=== PATIENT | male | born 1995 | race Caucasian/White ===

== ENCOUNTER 2019-10-18 19:19 | Emergency (ER) | payer BC, SELFPAY ==
[2019-10-18 19:18] VITALS: BP 117/38; PULSE 68; RESP 18; TEMP 36.4; O2SAT 100
[2019-10-18 19:23] VITALS: O2SAT 100
[2019-10-18 19:25] VITALS: BP 117/38; PULSE 61; O2SAT 100
--- NOTE | 2019-10-18 19:28 | ED.GENADUL_ITS ---
Discharge Plan Disposition Patient Disposition: HOME Condition: Stable Discharge Details Chief Complaint: Orthopedic Clinical Impression: Hip pain, right Primary Care Provider: Deepak Kauffman ED Provider: Shwetha Olivera Home Meds and New Rx's Prescriptions: New cyclobenzaprine 10 mg tablet 10 mg PO TID PRN (Reason: muscle spasm) Qty: 10 RF: 0 No Action ibuprofen 200 MG tablet 400 mg PO PRN PRNRF: 0 Discharge Instructions Instructions: Hip Pain (ED) Additional Instructions: Follow up with primary care provider in 3-5 days. Return to ED sooner if any worsening or concerns. Please take Tylenol or Ibuprofen with food every 4-6 hours as needed for pain and swelling. Take medications as directed. Your x-rays were negative for any fracture or dislocation at this time. Stand Alone Forms: Physical Therapy Referral, Work Release Referrals: Deepak Kauffman DO [Primary Care Provider] - Medical Decision Making 24-year-old male presents via EMS for right hip pain which radiates into his lower back. Prior to arrival patient was walking and heard some popping and his right hip gave out. Patient then fell to the ground became nauseous and vomited x1. 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 Upon arrival he has full range of motion of all 4 extremities. He does have tenderness with right straight leg test. Dorsal and plantar flexion and extension is intact. Denies any urinary incontinence, no saddle anesthesia, no loss of bowel. He does not have any history of back surgeries. He was given 200 mcg of fentanyl intranasal and IV prior to arrival. 1935: XR of hip and pelvis with L spine ordered. UA ordered and Toradol and Zofran. 1937: Informed by patient critical care transport nurse that Patient may have had loss of consciousness on scene, after speaking with patient he states he did lose consciousness for a few seconds and upon waking called his family. He remembers incident and denies hitting his head. At this time I do not feel CT is necessary due to alert and oriented x 3 and no head injuries noted. 2035: X-rays at this time are negative for fracture or dislocation. He has minimal L4 level levoscoliosis on his lumbar spine x-ray. Flexeril order in place and will try road test. Patient is feeling better and is eating and drinking in the room. 2100: Patient tolerated road test with RN, he was ambulatory without assistance, plan is to discharge patient with Flexeril prescription with strict return instructions. Physical therapy referral was given also if patient cannot follow up with his chiropractor. HPI General Mode of arrival: ambulatory . Date/Time Provider Initiated Documentation: 10/18/19 19:25 . Limitations to Documentation: no limitations . Information obtained by: patient and RN notes reviewed . History of Present Illness Quality is described as aching, and is localized to the back. Patient reports no radiation. and it has been constant. Movement worsens symptoms . Patient notes no other symptoms.. Patient did receive the following treatments prior to arrival, none HPI Narrative: 24-year-old male presents via EMS after he was walking around his house, heard some popping to his right hip and felt his right hip give out. Patient then fell to the ground, patient then got nauseated and vomited x1. He is currently power water filtration technician and has been doing some chiropractic adjustments onto his hip. No previous back surgeries or hip surgeries. Pain radiates up into his lower back. He is able to move all 4 extremities upon arrival. Related Data Home Medications Medication Instructions Recorded Confirmed ibuprofen 400 mg PO PRN PRN 05/04/17 10/18/19 cyclobenzaprine 10 mg PO TID PRN #10 tab 10/18/19 Previous Rx's Medication Instructions Recorded cyclobenzaprine 10 mg PO TID PRN #10 tab 10/18/19 Allergies Allergy/AdvReac Type Severity Reaction Status Date / Time silver sulfadiazine Allergy Intermediate Itching Unverified 10/18/19 19:29 amoxicillin [Amoxicillin] Allergy Mild Hives Unverified 10/18/19 19:29 General Stated Complaint: Orthopedic ADRY: 3 Review of Systems All systems reviewed & are unremarkable except as noted in HPI and below Constitutional Constitutional: Reports as per HPI, Denies body ache(s), Denies fever(s), Denies frequent falls, Denies lethargy, Denies night sweats, Denies snoring, Denies weakness and Denies weight loss Eyes Eyes: Denies loss of peripheral vision, Denies loss of vision and Denies spots in vision ENT Ears, Nose, Mouth, and Throat: Denies dizziness and Denies disequilibrium Cardiovascular Cardiovascular: Denies syncope, Denies claudication, Denies leg edema, Denies lightheadedness, Denies dyspnea and Denies dyspnea on exertion Respiratory Respiratory: Denies cough, Denies excessive phlegm production, Denies dyspnea, Denies dyspnea on exertion, Denies snoring and Denies stridor Gastrointestinal Gastrointestinal: Denies diarrhea Genitourinary Genitourinary: Denies difficulty urinating, Denies dysuria, Denies urinary incontinence and Denies urinary urgency Musculoskeletal Musculoskeletal: Denies abnormal gait, Reports back pain, Denies atrophy, Denies muscle weakness and Denies numbness Neurologic Neurologic: Denies abnormal movements, Denies abnormal gait, Denies burning sensations, Denies confusion, Denies dizziness, Denies syncope, Denies frequent falls, Denies lack of coordination, Denies loss of vision, Denies numbness, Denies paresthesias, Denies disequilibrium and Denies weakness Psychiatric Psychiatric: Denies confusion [facility] Medical History Cellulitis of hand, left (Acute) Mood disorder (Acute) Pilonidal cyst (Acute 12/16/15) PTSD (post-traumatic stress disorder) (Acute) Surgical History History of excision of mass (Inactive) Social History Smoking/Tobacco Use Status: Former Tobacco Use Quit Date: 08/19/16 Tobacco: How many years used: 8 Alcohol Intake: current Alcohol Intake frequency: a few times a month Alcohol type: beer Drug use: Daily Substance use type: marijuana Details: No IV Drug Use Adopted: No Caregiver/Support person: No Foster care: No Household members: family Housing: house Do you need help understanding health information?: Never current occupation: [employer] Sexually active: Yes Do you think of yourself as: straight/heterosexual Current gender identity: male Do you feel safe at home: Yes Do you feel safe in your relationship?: Yes Exam Const General: cooperative, healthy appearing, uncomfortable and well groomed Nutritional Appearance: average body habitus Orientation: alert, awake and oriented x3 Resp Effort & Inspection: normal respiratory effort and no use of accessory muscles Auscultation: clear to auscultation bilaterally and no wheezes Cardio Rhythm: regular rhythm Heart Sounds: S1 normal and S2 normal Back/Spine/Pelvis Back: no CVA tenderness and back tenderness Cervical Spine: normal cervical lordosis and cervical ROM normal Pelvis: no pain with anterior-posterior compression Neuro General: alert, awake, oriented x3, moves all extremities and no focal motor deficits Cranial Nerves: PERRL, accommodation normal, EOM intact bilaterally, no nystagmus, facial strength normal, tongue midline, able to rotate head bilaterally and able to elevate shoulders bilaterally Cognition: normal cognition Speech: speech normal Gait: normal gait Motor: muscle tone normal throughout DTR's: Rt Patellar: 2+, Lt Patellar: 2+, Rt Ankle: 2+ and Lt Ankle: 2+ Plantar Reflexes: Downgoing: bilateral and Upgoing: bilateral Coordination: [id number] test normal Comatose Patient: corneal reflex present Pupils: Normal pupillary reactivity/response: bilateral Course Vital Signs Vital signs: Vital Signs Temperature 36.4 C L 10/18/19 19:18 Pulse 68 10/18/19 19:18 Respiratory Rate 18 10/18/19 19:18 Blood Pressure 117/38 L 10/18/19 19:18 Pulse Oximetry 100 10/18/19 19:18 Temperature 36.4 C L 10/18/19 19:18 Temperature Source Skin 10/18/19 19:18 Pulse 68 10/18/19 19:18 Respiratory Rate 18 10/18/19 19:18 Blood Pressure 117/38 L 10/18/19 19:18 Blood Pressure Position Supine 10/18/19 19:18 Pulse Oximetry 100 10/18/19 19:18 Oxygen Delivery Method Room Air 10/18/19 19:18 Oxygen Flow Rate 0 10/18/19 19:18 Pain Level 8 10/18/19 19:18
[2019-10-18] MEDS: Ketorolac 30 MG/ML VIAL IVP (19:40)
--- NOTE | 2019-10-18 20:12 | DI.RAD_ITS ---
EXAM: XR LUMBAR SPINE AP, LAT CLINICAL HISTORY: Lower back pain TECHNIQUE: COMPARISON: No exams were available for comparison FINDINGS: Two views were obtained. The intervertebral disc spaces are well maintained. No fracture seen. No other bony abnormality. SI joints appear intact. IMPRESSION: Negative examination of lumbosacral spine
--- NOTE | 2019-10-18 20:12 | DI.RAD_ITS ---
EXAM: XR HIP RT COMPLETE AP PELVIS CLINICAL HISTORY: Pain and popping TECHNIQUE: COMPARISON: No exams were available for comparison FINDINGS: Three views were obtained. No bony or soft tissue abnormality seen. IMPRESSION:
[2019-10-18 20:16] VITALS: PULSE 67; RESP 13; O2SAT 100
[2019-10-18 20:18] VITALS: BP 115/61; PULSE 70; RESP 12; O2SAT 100
--- NOTE | 2019-10-18 20:25 | DI.VRAD_ITS ---
PROCEDURE INFORMATION: Exam: XR Right Hip with Pelvis when Performed Exam date and time: 10/18/2019 7:48 PM Age: 24 years old Clinical indication: Other: Pain and poping TECHNIQUE: Imaging protocol: XR Right hip with pelvis when performed. Views: 2 or 3 views. COMPARISON: No relevant prior studies available. FINDINGS: Bones/joints: Unremarkable. No acute fracture. Soft tissues: Unremarkable. IMPRESSION: No acute findings. Dictated and Authenticated by: Pantera Cruz MD. Ordering:NEFTALI Tadeo MD
--- NOTE | 2019-10-18 20:26 | DI.VRAD_ITS ---
PROCEDURE INFORMATION: Exam: XR Lumbosacral Spine, 2 or 3 Views Exam date and time: 10/18/2019 7:52 PM Age: 24 years old Clinical indication: Other: Lower spine pain TECHNIQUE: Imaging protocol: XR of the lumbosacral spine, 2 or 3 views. COMPARISON: CR XR HIP RT COMPLETE AP PELVIS 10/18/2019 7:48 PM FINDINGS: Vertebrae: Minimal levoscoliosis centered at L4. No focal bone lesions. No fractures. No disc degenerative narrowing. Facet joints are unremarkable. Sacroiliac joints are normal. Soft tissues: Paraspinous soft tissues are unremarkable.. IMPRESSION: Minimal L4 level levoscoliosis. Dictated and Authenticated by: Pantera Cruz MD. Ordering:NEFTALI Tadeo MD
[2019-10-18 20:27] LABS: Bilirubin Negative (Negative); Blood Trace-intact (Negative); Clarity Clear (Clear); Glucose Negative (Negative); Ketones Negative (Negative); Leukocyte Esterase Negative (Negative); Nitrite Negative (Negative); Specific Gravity >= 1.030 (1.005-1.025); Urobilinogen 0.2 EU/dL (Up TO 0.2)
--- NOTE | 2019-10-18 20:30 | NUR.NOTE ---
pt provided with meal tray Nursing Note:
[2019-10-18 20:37] LABS: Bacteria Negative HPF (Negative); C & S Indicated? No; Casts 5-10 Hyaline LPF (Negative); Crystals Negative HPF (Negative); Epithelial Cells Few HPF (Negative); Mucus Negative (Negative); RBC Negative HPF (0-2); WBC Negative HPF (0-5)
[2019-10-18] MEDS: Cyclobenzaprine 10 MG TAB PO (20:39)
[2019-10-18 22:12] VITALS: BP 116/64; PULSE 72; RESP 16; O2SAT 100
== END 2019-10-18 21:25 | disposition home or self-care (01) ==
LOC: ER 21:19
PROVIDERS: Emergency Provider Registered Nurse Emergency; PCP Family Medicine
DX: M25.551 Pain in right hip (principal); R11.2 Nausea with vomiting, unspecified; W19.XXXA Unspecified fall, initial encounter
CPT/HCPCS: 96374; 99284; 72100; 73502; 81003; 81015; J1885

== ENCOUNTER 2019-10-26 02:03 | Outpatient (CLI) | payer BC, SELFPAY ==
--- NOTE | 2019-10-26 11:10 | DI.CT_ITS ---
EXAM: CT LOWER EXTREMITY RT WO CLINICAL HISTORY: S/P rearticulation, r/o bony fragments or necrosis TECHNIQUE: COMPARISON: No exams were available for comparison FINDINGS: CT examination of the hip was performed without contrast administration. There is reportedly history of recent hip dislocation. Pelvic contents appear intact as visualized. No significant visualized hematoma. Normal position of femoral head with respect to the acetabulum. No fracture identified. No free bony fragment seen. IMPRESSION: Negative right hip CT. Requisition raises the possibility of avascular necrosis and if there is a cl inical suspicion of AVN additional evaluation with MR may be considered.
== END 2019-10-26 02:23 ==
PROVIDERS: PCP Family Medicine; Visit Provider Family Medicine
DX: M25.551 Pain in right hip (principal); S73.004A Unspecified dislocation of right hip, initial encounter; Z98.890 Other specified postprocedural states
CPT/HCPCS: 73700

== ENCOUNTER 2019-10-31 01:18 | Outpatient (CLI) | payer BC, SELFPAY ==
--- NOTE | 2019-10-31 11:51 | DI.MRI_ITS ---
EXAM: MR LOWER JOINT RT WO CLINICAL HISTORY: Possible hip dislocation, r/o osteonecrosis, hip pain rt, M25.551. TECHNIQUE: Multiplanar multisequence MRI was performed. FINDINGS: Marrow signal is normal. There is no evidence of avascular necrosis. No hip joint effusion is see n. There is no abnormal signal within the musculature. No tendon abnormalities are seen. IMPRESSION: Negative MRI of the pelvis and right hip. No evidence of avascular necrosis.
== END 2019-10-31 01:38 ==
PROVIDERS: PCP Family Medicine; Visit Provider Family Medicine
DX: M25.551 Pain in right hip (principal)
CPT/HCPCS: 73721

== ENCOUNTER 2020-07-14 11:35 | Outpatient (CLI) | payer BC, SELFPAY ==
[2020-07-16 19:13] LABS: Patient Race White; SARS-CoV-2 RNA Undetected (Undetected); SARS-CoV-2 Specimen Source Nasal
== END 2020-07-14 11:55 ==
PROVIDERS: PCP Family Medicine; Visit Provider Family Medicine
DX: Z11.59 Encounter for screening for other viral diseases (principal)
CPT/HCPCS: U0003

== ENCOUNTER 2021-01-14 09:19 | Outpatient (CLI) | payer BC, SELFPAY ==
[2021-01-15 14:19] LABS: COVID-19 RT-PCR UVMMC Result Negative (Negative)
== END 2021-01-14 09:20 | disposition home or self-care (01) ==
PROVIDERS: PCP Family Medicine; Visit Provider Family Medicine
DX: Z20.822 Contact with and (suspected) exposure to COVID-19 (principal)
CPT/HCPCS: U0003

== ENCOUNTER 2021-06-19 18:53 | Outpatient (CLI) | payer BC, SELFPAY ==
--- NOTE | 2021-06-19 19:00 | DI.RAD_ITS ---
Exam(s) XR HIP RT COMPLETE AP PELVIS EXAM: XR HIP RT COMPLETE AP PELVIS CLINICAL HISTORY: acute right hip pain r/o dislocation. TECHNIQUE: 2D digital imaging was performed of the right hip. Three images were obtained. AP pelvis and lateral right hip views were obtained. COMPARISON: CR,XR XR HIP RT COMPLETE AP PELVIS from 10/18/2019 FINDINGS: BONES: No acute fracture is present. No bony destructive lesion is seen. JOINTS: No dislocation present. SOFT TISSUE: Normal. IMPRESSION: Unremarkable radiographs of the right hip. Unremarkable radiographs of the pelvis. DATA REPOSITORY: RADIATION DOSE DELIVERED:
--- NOTE | 2021-06-19 19:48 | DI.VRAD_ITS ---
PROCEDURE INFORMATION: Exam: XR Right Hip Exam date and time: 06/19/2021 7:05 PM Age: 26 years old Clinical indication: Other: Acute pain R/O dislocation TECHNIQUE: Imaging protocol: XR Right hip. Views: 2 or 3 views hip with pelvis when performed. COMPARISON: CR XR HIP RT COMPLETE AP PELVIS 10/18/2019 7:48 PM FINDINGS: Bones/joints: No acute fracture. Alignment is anatomic. The joint spaces are preserved. Soft tissues: Unremarkable. IMPRESSION: No acute findings. Dictated and Authenticated by: Chucho Colby MD. Ordering:HOMERO Cyr MD
== END 2021-06-19 19:13 ==
PROVIDERS: PCP Family Medicine; Visit Provider Nurse Practitioner Family
DX: M25.551 Pain in right hip (principal)
CPT/HCPCS: 73502

== ENCOUNTER 2021-08-27 15:33 | Outpatient (REF) | payer BC, SELFPAY ==
[2021-08-29 18:24] LABS: COVID-19 RT-PCR UVMMC Result Negative (Negative)
== END 2021-08-27 15:34 | disposition home or self-care (01) ==
LOC: LBN 15:33
PROVIDERS: PCP Family Medicine; Visit Provider Family Medicine
DX: Z20.822 Contact with and (suspected) exposure to COVID-19 (principal)
CPT/HCPCS: U0003

== ENCOUNTER → 2023-08-05 11:24 | Outpatient (CLI) | payer OTHER, SELFPAY ==
--- NOTE | 2023-08-05 15:06 | DI.RAD_ITS ---
Exam(s) XR RIBS LT W PA LAT CHEST EXAM: XR RIBS LT W PA LAT CHEST CLINICAL HISTORY: PLEURODYNIA R07.81. TECHNIQUE: 2D digital imaging was performed. COMPARISON: No exams were available for comparison FINDINGS: For ribs-four views: No fracture. No rib lesions evident. Chest x-ray-two views Size normal. Mediastinum not widened. Lungs are clear with no infiltrates nor pleural effusions. N o pneumothorax. IMPRESSION: 1. No acute pulmonary findings. 2. No left rib findings. DATA REPOSITORY: RADIATION DOSE DELIVERED:
== END ==
PROVIDERS: PCP Family Medicine; Visit Provider Physician Assistant Medical
DX: R07.81 Pleurodynia (principal)
CPT/HCPCS: 71046; 71100